=== PATIENT | female | born 2000 | race Hispanic/Latino ===

== ENCOUNTER 2024-04-11 00:51 | Emergency (ER) | payer OTHER, SELFPAY ==
[2024-04-11 00:51] VITALS: BMI 23.3
[2024-04-11 00:57] VITALS: BP 114/60
--- NOTE | 2024-04-11 01:28 | ED.GENMED ---
History of Present Illness
General
Chief Complaint: Abdominal Symptoms
Source: patient
Time Seen by Provider: 04/11/24 01:22
History of Present Illness
History of Present Illness:
23-year-old female presenting to the emergency department for evaluation of nausea vomiting diarrhea that began earlier today, having a hard time tolerating p.o., feels dehydrated so decided to come to the ER for further evaluation. She endorses
diffuse and generalized abdominal cramping. No fevers, no recent antibiotics. No other concerns. Did not take anything for symptoms prior to arrival.
Past History
Past History
ED Past Medical History: Psychiatric (Anxiety, OCD)
ED Past Surgical History: None
Social History
Tobacco: Non-smoker
Alcohol: Occasional
Drug: None
Personal: Single
Living: with family
Review of Systems
Review of Systems
All Other Systems: ROS reviewed and negative except as documented in HPI and ROS
Phy Exam
Physical Exam
Physical Exam:
GENERAL: Alert , in no apparent distress
EYE: clear conjunctiva b/l
HEAD: NCAT
ENT: mmm.
CARDIAC: Regular rate and rhythm .
LUNGS: Clear breath sounds bilaterally, no acute respiratory distress, no wheezes/rales/rhonchi
ABDOMEN: Soft, without focal tenderness, no r/g, no cvat
NEUROLOGICAL: Alert and oriented
SKIN: Warm and dry, skin intact.
MUSCULOSKELETAL: well perfused.
PSYCH: Normal and appropriate interaction.
Scores
Heart Failure Risk
Heart Failure Risk Score: Not Applicable
Heart Score for Chest Pain Patients
STEMI patient?: Not applicable
Withdrawal Assessment of Alcohol
Withdrawal Assessment Completed?: Not applicable
Course
Orders/Labs/Results
Orders:
Orders
04/11/24 01:22
0.9% Sodium Chloride 1000 ml [Nss] 1,000 ml IV BOLUS
Ketorolac [Toradol] 30 mg IV NOW STA
Ondansetron Injectable [Zofran] 4 mg IV NOW STA
Test Result ONCE
04/11/24 01:50
Complete Blood Count/With Diff Urgent
Comprehensive Metabolic Panel Urgent
HCG, Serum Qualitative Screen Urgent
Lipase Urgent
Abnormal Lab Results
04/11/24
01:50
MPV 12.2 H fL
(7.4-10.4)
Absolute Neuts (auto) 8.6 H 10^3/uL
(1.4-6.5)
Absolute Lymphs (auto) 0.2 L 10^3/uL
(1.2-3.4)
Neutrophils % 91.3 H %
(42.2-75.2)
Lymphocytes % 1.7 L %
(20.5-51.1)
Glucose 134 H mg/dl
(70-99)
04/11/24 01:50
04/11/24 01:50
Vital Signs
Initial and Last Documented VS:
Initial Vital Signs
Temp Pulse Resp BP Pulse Ox
100 F 114 20 114/60 100
04/11/24 00:57 04/11/24 00:57 04/11/24 00:57 04/11/24 00:57 04/11/24 00:57
Last Documented Vital Signs
Temp Pulse Resp BP Pulse Ox
99.4 F 101 19 99/57 98
04/11/24 02:00 04/11/24 03:09 04/11/24 03:09 04/11/24 03:09 04/11/24 03:09
MDM/Problems Addressed
Differential Diagnosis Includes:
Gastroenteritis, foodborne illness, dehydration, no signs to suggest acute surgical abdomen
MDM/Problems Addressed:
23-year-old female presenting to the emergency department for evaluation of nausea vomiting diarrhea that began earlier today. She is having a harder time tolerating p.o. Will start an IV and treat with fluids, Zofran and Toradol. Reassessment
following with anticipation that as long as she is able to tolerate p.o. here that we can discharge her home for continued outpatient manage
*Pulse Oximetry
Patient hypoxic: no
*Critical Care Note
Total Time (30-74mins, 75-104mins- exclusive of procedures): Not Applicable
Patient Management
Escalation/DeEscalation of care consider admission/obs:
Patient tolerating PO. Feels better following fluids and meds. BRAT diet advised. Aware of return precautions
ED Attending Note
-
Portions of this chart may have been created with voice recognition software.� Occasional wrong word or��sound alike� substitutions may have occurred due to the inherent limitations of voice recognition software.
Discharge Plan
Departure
Patient Disposition: Home (Routine Discharge)
Date of Disposition: 04/11/24
Time of Disposition: 03:10
Patient with high blood pressure during this ER visit?: No
Discharge Problem:
Nausea and vomiting, Diarrhea
Instructions: Nausea and Vomiting, Adult (DC)
Prescriptions:
New
ondansetron 4 mg tablet,disintegrating
4 mg PO TIDPRN PRN (Reason: nausea/vomiting) Qty: 10 0RF
No Action
fluoxetine [Prozac] 20 mg capsule
20 mg PO DAILY Qty: 30 0RF
Interventions
Interventions:
*Risk Screen - Suicide Last Done: 04/11/24 00:57
*General Assessment Last Done: 04/11/24 01:30
*Neglect/Abuse Screening Last Done: 04/11/24 00:57
ED- Fall Risk Assessment Last Done: 04/11/24 01:30
*Nursing Disposition Last Done: 04/11/24 03:36
RH-Ocxyck-Qxttptleih Assessment Last Done: 04/11/24 01:30
Discharge Date and Time
Discharge Date/Time: 04/11/24 03:37
Print Language: ROMANIAN
[2024-04-11 01:43] VITALS: BP 98/87
[2024-04-11] MEDS: NSS 1000 IV (01:51)
[2024-04-11] MEDS: ZOFRAN 4 MG IV (01:53)
[2024-04-11] MEDS: TORADOL 30 MG IV (01:53)
[2024-04-11 01:55] LABS: % Basophils 0.2 % (0-2); % Eosinophils 0.1 % (0-6); % Immature Granulocytes 0.4 % (0-0.5); % Lymphocytes 1.7 % (20.5-51.1); % Monocytes 6.3 % (1.7-9.3); % Neutrophils 91.3 % (42.2-75.2); Absolute Lymphocytes 0.2 10^3/uL (1.2-3.4); Absolute Monocytes 0.6 10^3/uL (0.1-0.6); Absolute Neutrophils 8.6 10^3/uL (1.4-6.5); Hematocrit 39.2 % (37.0-47.0); Mean Corp Hgb Conc. 33.2 g/dL (33.0-37.0); Mean Corpuscular Hgb 29.1 pg (27.0-31.0); Mean Corpuscular Volume 87.9 fL (81.0-99.0); Mean Platelet Volume 12.2 fL (7.4-10.4); Nucleated Red Blood Cells % 0 %; Platelet Count 173 10^3/uL (130-400); Red Blood Cell Count 4.46 10^6/uL (4.20-5.40); Red Cell Dist. Width 13.2 % (11.5-14.5); White Blood Cell Count 9.5 10^3/uL (4.8-10.8)
[2024-04-11 02:01] VITALS: BP 101/54
[2024-04-11 02:08] LABS: HCG, Serum Qualitative Screen Negative
[2024-04-11 02:18] LABS: ALT (SGPT) 18 U/L (0-35); AST (SGOT) 25 U/L (14-36); Albumin 4.9 g/dl (3.5-5.0); Alkaline Phosphatase 48 U/L (38-126); Blood Urea Nitrogen 17 mg/dl (7-17); Calcium 9.2 mg/dl (8.4-10.2); Carbon Dioxide 24 mmol/L (22-30); Chloride 103 mmol/L (98-107); Estimated Creatinine Clearance 109 ml/min; Glucose 134 mg/dl (70-99); Lipase 231 U/L (23-300); Potassium 4.2 mmol/L (3.5-5.1); Sodium 139 mmol/L (135-145); Total Bilirubin 0.9 mg/dl (0.2-1.3); Total Protein 7.9 g/dl (6.3-8.2); eGFR > 60.00
[2024-04-11 02:30] VITALS: BP 101/58
[2024-04-11 03:09] VITALS: BP 99/57
== END 2024-04-11 03:37 | disposition home or self-care (01) ==
LOC: EMR 00:51
PROVIDERS: Physician Assistant Medical; EMERGENCY PHYSICIAN Student in an Organized Health Care Education/Training Program; FAMILY PHYSICIAN Internal Medicine
DX: R11.2 Nausea with vomiting, unspecified (principal); R19.7 Diarrhea, unspecified; R10.84 Generalized abdominal pain; F41.9 Anxiety disorder, unspecified; F42.9 Obsessive-compulsive disorder, unspecified
CPT/HCPCS: 99284; 96374; 96375; 96361; 80053; 83690; 84703; 85025